=== PATIENT | female | born 1970 | race Caucasian/White ===

== ENCOUNTER 2018-06-18 17:59 | Emergency (ER) | payer MEDICAID ==
[~2018-06-18] VITALS: Ht 160 cm; Wt 82.6 kg
[2018-06-18 18:03] VITALS: Ht 160 cm; Wt 82.6 kg
[2018-06-18 20:13] VITALS: BP 127/85
== END 2018-06-18 20:14 | disposition home or self-care (01) ==
LOC: ED 17:59
DX: F32.9 Major depressive disorder, single episode, unspecified (principal)
CPT/HCPCS: 82962